=== PATIENT | male | born 1940 | race Caucasian/White ===

== ENCOUNTER → 2020-01-24 09:51 | Outpatient (CLI) | payer MEDICARE, MEDICAID ==
--- NOTE | ~2020-01-24 | EC ---
PATIENT:ERICA RUIZ DATE OF SERVICE: 01/24/20 SEX: M MEDICAL RECORD: [id number] DATE OF : 38 LOCATION:[facility] AGE OF PATIENT: 79 ADMISSION DATE: 01/24/20 REFERRING PHYSICIAN: INTERPRETING PHYSICIAN: CLAY CERVANTES MD ECHOCARDIOGRAM REPORT ECHO CHARGES 4 ECHO COMPLETE Date: 01/24/20 CLINICAL DIAGNOSIS: ANGINA/DE LEÓN/ABNORMAL EKG/ MURMUR/A-FIB/HTN ECHOCARDIOGRAPHIC MEASUREMENTS (adult normal given) AC root (d.<3.7cm) 3.3 cm LV Septum d (<1.2 cm> 1.6 cm Valve Excursion 1.9 cm LV Septum (systole) 2.2 cm Left Atria (s.<4.0cm> 4.6 cm LVPW d(<1.2cm) 1.7 cm RV (d.<2.3cm) 3.3 cm LVPW (sytole) 2.2 cm LV diastole(<5.6CM) 5.1 cm MV E-F(>70mm/sec) cm LV systole 2.7 cm LVOT Diameter 2.0 cm MV exc.(>10mm) cm Est.ejection fraction (50-75%) % DOPPLER: LVIT cm/sec A cm/sec E 132 cm/sec LA cm/sec RVSP 28.0 mmHg LVOT 75.0 cm/sec AOP1/2T m/s Asc. Ao 116 cm/sec RVOT 64.0 cm/sec RA cm/sec PA 88.0 cm/sec AV Gradient Peak 5.4 mmHg AV Mean 2.7 mmHg AV Area 2.2 cm MV Gradient Peak 6.1 mmHg MV Mean 1.8 mmHg MV Area cm COMMENTS: OP - [facility] Consultant: 1 TROY VICKY Head Of Science: 3 Dr. Ramirez TAPE# PACS Pericardial Effusion N DATE OF SERVICE: Adequate 2D, color flow imaging, spectral Doppler, and M-Mode. LVH is present. LV internal dimension is normal. Wall motion is normal. EF is greater than or equal to 55%. Aortic valve is tricuspid. No evidence of stenosis by Doppler interrogation. Left atrium is normal at 4.6 cm. Mitral valve shows no prolapse. Mild MR. Right-sided chambers are grossly normal. Trace TR. ECHOCARDIOGRAM REPORT [id number] ERICA RUIZ TRANSINT:[id number] Voice Confirmation ID: [id number] DOCUMENT ID: [id number] CLAY CERVANTES MD CC: [id number] DICTATION DATE: 01/28/20 1257 LANDSCAPING MANAGER: 01/28/20 2336 DEP CLI 01/24/20 [place] [id number] [place] [id number]
--- NOTE | ~2020-01-24 | ST ---
PATIENT:ERICA RUIZ MEDICAL RECORD: [id number] SEX: M LOCATION:[facility] ORDER #: ADMISSION DATE: 01/24/20 AGE OF PATIENT: 79 REFERRING PHYSICIAN: INTERPRETING PHYSICIAN: MEGAN SHARMA MD DATE OF SERVICE: 01/24/2020 INDICATION: Angina, shortness of breath, hypertension, abnormal ECG. TECHNIQUE: He was exercised on standard Lexiscan protocol with 33 mCi of sestamibi injected at peak stress, 11 mCi used previously for rest images. FINDINGS: Gated SPECT reveals preserved ejection fraction at 66% with decreased thickening and brightening throughout the inferior segments. SPECT imaging Cardiolite was used as myocardial perfusion agent. There is a fixed perfusion defect inferiorly, this includes the basal, mid, apical, inferior segments. There is reversibility laterally. This includes the basal lateral, mid lateral, and apical lateral segments. The degree of reversibility is severe. The amount of myocardium involved is large. There is reversibility anteriorly, this includes the basal, mid, apical anterior segments. The degree of reversibility is severe. The amount of myocardium involved is large. OVERALL IMPRESSION: This is a markedly abnormal high risk nuclear stress test, fixed perfusion defect inferiorly, reversible ischemia laterally and anteriorly suggestive of hemodynamically significant multivessel coronary artery disease. TRANSINT:[id number] Voice Confirmation ID: [id number] DOCUMENT ID: [id number] cc: Annamarie Curran, MEGAN SHARMA MD CC: DR. DAISY [id number] [id number] DICTATION DATE: 01/25/20 1700 DEFLECTOR OPERATOR: 01/26/20 1125 DEP CLI 01/24/20 [place] [id number] [place] [address]
== END | disposition home or self-care (01) ==
LOC: D.HCCECHO 09:51
PROVIDERS: ATTEND Internal Medicine Interventional Cardiology
DX: I48.91 Unspecified atrial fibrillation (principal); I20.9 Angina pectoris, unspecified

== ENCOUNTER 2020-03-18 11:15 | Outpatient (CLI) | payer MEDICARE, MEDICAID ==
[~2020-03-18] VITALS: Ht 185.4 cm; Wt 116.8 kg
--- NOTE | ~2020-03-18 | HEMODYNAMI ---
PATIENT:ERICA RUIZ MEDICAL RECORD: [id number] : 38 LOCATION:[facility] ADMISSION DATE: 03/18/20 Generatedon:03/18/202013:31 Patient name: ERICA RUIZ Patient #: [id number] SSN : [id number] : 1940 Date of study: 03/18/2020 Page: Of Hemodynamic Procedure Report Patient Data Patient Demographics Procedure consent was obtained First Name: ERICA Gender: Male Last Name: SARA : 1940 [facility] Initial: D Age: 79 year(s) Patient #: [id number] Race: SSN: [id number] Additional ID: [id number] Contact details Address: [address] [place] [address] State: [place] City: [place] Zip code: [address] Admission Admission Data Admission Date: 03/18/2020 Admission Time: 11:15 Arrival Date: 03/18/2020 Arrival Time: 13:00 Admit Source: Other Insurance Payor: Medicare [facility] #: [id number] Height (in.): 72.83 BSA: 2.38 (m2) Height (cm.): 185 BMI: 33.89 (kg/m2) Weight (lbs.): 255.74 Weight (kg.): 116 Lab Results Lab Result Date: 03/18/2020 Lab Result Time: 0:00 Biochemistry Name Units Result Min Max BUN mg/dl 16 --(---*)-- 7 18 Creatinine mg/dl 1.2 --(---*)-- 0.6 1.3 eGFR ml/min 61.50792 *-(----)-- 90 120 NONAFRICAN CBC Name Units Result Min Max Hemoglobin g/dl 13.3 -*(----)-- 13.5 17.5 Procedure Procedure Types Cath Procedure Diagnostic Procedure LHC LH w/Coronaries Sedation Charges Moderate Sedation up to 15 minutes PCI Procedure Coronary Stent Coronary Stent Initial Hemochron ACT Test Procedure Description Procedure Date Procedure Date: 03/18/2020 Procedure Start Time: 13:05 Procedure End Time: 13:21 Procedure Staff Name Function Nabeel Rodriguez MD Performing Physician Patsy Brewer RT Monitor Khushbu Johnson RT Scrub Nathen Damon RN Nurse Procedure Data Cath Procedure Fluoroscopy Diagnostic fluoroscopy Total fluoroscopy Time: 3.1 time: 3.1 min min Diagnostic fluoroscopy Total fluoroscopy dose: 656 dose: 656 mGy mGy Contrast Material Contrast Material Type Amount (ml) Isovue 300 92 Entry Location Entry Primary Successful Side Size Upsize Upsize Entry Closure Succes sful Closure Location (Fr) 1 (Fr) 2 (Fr) Remarks Device Remarks Femoral Right 5 Fr 6 Fr Exoseal artery Short Estimated blood loss: 5 ml Diagnostic catheters Device Type Used For End Catheter Placement MULTIPACK JL 4.0 5Fr Left Coronary catheter Angiography MULTIPACK 3DRC 5Fr Right Coronary catheter Angiography MULTIPACK Pigtail 5 Fr LV Angiography catheter Procedure Complications No complications Procedure Medications Medication Administration Route Dosage Oxygen etCO2 Nasal cannula 2 l/min Lidocaine 2% added to field 20 Heparin Flush Bag added to field 2 bags (1000units/500ml NS) 0.9% NaCl I.V. 100 ml/hr Versed I.V. 1 mg Fentanyl I.V. 50 mcg Versed I.V. 1 mg Fentanyl I.V. 50 mcg Heparin Bolus I.V. 4000 units Integrilin (Bolus I.V. 10.7 ml 2mg/ml) Heparin Bolus I.V. 2000 units Plavix P.O. 600 mg Hemodynamics Rest BSA: 2.38 (m2) HGB: 13.3 (g/dl) O2 Consumption: Estimated: 274.33 (ml/min) O2 Co nsumption indexed: Estimated:115.26 (ml/min/m) Heart Rate: 73 (bpm) Pressure Samples Time Site Value (mmHg) Purpose Heart Use Rate(bpm) 13:11 LV 177/14,19 Snapshot 77 Gradients Valve Time Site Site Mean SEP/DFP Peak To Heart Use 1 2 (mmHg) (sec/min) Peak Rate (mmHg) (bpm) Aortic 13:11 LV AO 81 Snapshots Pre Cath Intra NCS Post Cath Vital Signs Time Heart Resp SPO2 etCO2 NIBP (mmHg) Rhythm Pain Sedation Rate (ipm) (%) (mmHg) Status Level (bpm) 12:55:08 74 14 100 0 176/95(139) A-Fib 0 (11) 10(A) , No pain 12:59:52 81 17 100 34.4 179/93(150) A-Fib 0 (11) 10(A) , No pain 13:04:37 68 14 100 26.1 170/103(136) A-Fib 0 (11) 10(A) , No pain 13:09:18 70 10 100 0 171/103(141) A-Fib 0 (11) 9(A) , No pain 13:14:03 71 10 99 38.1 153/82(144) A-Fib 0 (11) 9(A) , No pain 13:19:53 62 15 99 35.8 166/96(141) NSR w/ ST 0 (11) 10(A) Elevation , No pain 13:30:13 67 18 100 36.6 176/103(157) A-Fib 0 (11) 10(A) , No pain Medications Time Medication Route Dose Verified Delivered Reason Notes Effectiveness by by 12:53:47 Oxygen etCO2 2 Nabeel Sena used for Nasal l/min St Abran Damon RN procedure cannula 12:53:55 Lidocaine 2% added 20ml Nabeel Lees for local to vial [facility] anesthetic field MD ALMANZAR 12:54:01 Heparin Flush added 2 Nabeel Nabeel used for Bag to bags [facility] procedure (1000units/500ml field MD ALMANZAR NS) 12:54:10 0.9% NaCl I.V. 100 Nabeel Sena Per physician ml/hr St Abran Damon RN, MD 13:02:52 Versed I.V. 1 mg Nabeel Sena for sedation St Abran Damon RN, MD 13:02:57 Fentanyl I.V. 50 Nabeel Novakie for sedation mcg St Abran Damon RN, MD 13:07:15 Versed I.V. 1 mg Nabeel Novakie for sedation St Abran Damon RN, MD 13:07:19 Fentanyl I.V. 50 Nabeel Sena for sedation mcg St Abran Damon RN, MD 13:14:15 Heparin Bolus I.V. 4000 Nabeel Novakie for verif ied units St Abran Damon RN anticoagulation with dr MD gaffney 13:17:56 Integrilin I.V. 10.7 Nabeel Sena for waste d (Bolus 2mg/ml) ml St Abran Damon RN antiplatelet 9.3 ml MD therapy of vial 13:21:34 Heparin Bolus I.V. 1999 Nabeel Sena for verif ied units St Abran Damon RN anticoagulation with dr MD gaffney 13:30:05 Plavix P.O. 600 Nabeel Sena for mg St Abran Damon RN antiplatelet MD therapy Procedure Log Time Note 12:30:16 Nathen Damon RN sent for patient. Start room use. 12:39:12 Informed consent obtained and on chart 12:41:52 Arrival Date: 03/18/2020 1:00:00 PM 12:43:32 Admit Source: Other 12:43:39 Insurance Payor : Medicare 12:43:46 Patient Height : 72.83 inches 12:43:50 Patient Weight : 255.74 lbs 12:45:25 Lab Result : eGFR NONAFRICAN 61.16777 ml/min 12:45:25 Lab Result : Hemoglobin 13.3 g/dl 12:45:25 Lab Result : BUN 16 mg/dl 12:45:25 Lab Result : Creatinine 1.2 mg/dl 12:45:31 Diagnostic Cath Status : Elective 12:46:39 Procedure Status Elective Heart Cath (OP). 12:47:25 Time tracking: Regular hours (M-F 7:00 - 5:00) 12:47:30 Plan of Care:Hemodynamics will remain stable., Cardiac rhythm will remain stable., Comfort level will be maintained., Respiratory function will remain adequate., Patient/ family verbilizes understanding of procedure., Procedure tolerated without complication., Recovers from procedure without complications.. 12:47:39 Patient received from Pre/Post Procedure Room to [facility] 1 Alert and oriented. Tansferred to table in Supine position. 12:47:41 Warm blankets applied, and manpreet hugger turned on for patient comfort. 12:47:41 Correct patient and procedure confirmed by team. 12:47:42 ECG and BP/O2 sat monitors applied to patient. 12:53:36 Vital chart was started 12:53:47 Oxygen 2 l/min etCO2 Nasal cannula was administered by Nathen Damon RN; used for procedure; Verbal order read back and verified. 12:53:55 Lidocaine 2% 20ml vial added to field was administered by Nabeel Rodriguez MD; for local anesthetic; Verbal order read back and verified. 12:54:01 Heparin Flush Bag (1000units/500ml NS) 2 bags added to field was administered by Nabeel Rodriguez MD; used for procedure; Verbal order read back and verified. 12:54:10 0.9% NaCl 100 ml/hr I.V. was administered by Nathen Damon RN; Per physician; Verbal order read back and verified. 12:55:32 Baseline sample Acquired. 12:55:36 Rhythm: sinus rhythm , atrial fibrillation 12:55:37 Full Disclosure recording started 12:56:08 Called and updated spouse of pt, April. 12:57:14 H&P Date Dictated: 03/18/2020 Within 30 days and on chart., H&P Addendum completed by physician on day of procedure. (MUST COMPLETE FOR ALL OUTPATIENTS). 12:57:35 Pre-procedure instructions explained to patient. 12:57:36 Pre-op teaching completed and patient verbalized understanding. 12:57:38 Family unavailable. 12:57:39 Patient NPO since Midnight. 12:57:47 Is the patient allergic to Iodine/contrast media? No. 12:57:54 Was the patient premedicated? Yes 12:57:56 Is patient on blood thinner?No 12:58:00 Patient diabetic? No. 12:58:03 Previous problem with sedation/anesthesia? No ? 12:58:05 Snore? Yes 12:58:06 Sleep apnea? No 12:58:07 Deviated septum? No 12:58:08 Opens mouth fully? Yes 12:58:10 Sticks out tongue? Yes 12:58:13 Airway obstruction? No ? 12:58:19 Dentures? No ? 12:58:24 Pre procedure: right dorsailis pedis pulse 2+ Normal; easily identifiable; not easily obliterated 12:58:29 Pre procedure: left dorsailis pedis pulse 2+ Normal; easily identifiable; not easily obliterated 12:58:32 Patient pain scale 0/10 ?. 12:58:51 IV patent on arrival in left forearm with 0.9% NaCl at O. 12:58:53 Lab results completed and on chart. 12:59:02 Stress Test: yes; abnormal ? 13:01:19 Risk of Mortality: 0.2 13:01:23 Risk of blood transfusion: 1.1 13:01:27 Risk of FERNANDEZ: 2.7 13:01:34 Right groin area was prepped with chlora-prep and draped in sterile fashion 13:01:35 Alarms reviewed by R. N. 13:01:35 Sharps counted by scrub and verified by R.N. 13:01:39 Physician arrived 13:01:40 --------ALL STOP TIME OUT------ 13:01:44 Final Timeout: patient, procedure, and site verified with staff and physician. All members of the team are in agreement. 13:01:46 Right Radial & Right Groin site verified by team. 13:01:50 Fire Safety Assessment: A--An alcohol-based skin anteseptic being used preoperatively., C--Open oxygen or nitrous oxide is being used., D--An ESU, laser, or fiber-optic light is being used. 13:01:54 Physical assessment completed. ASA score P 2 - A patient with mild systemic disease as per Nabeel Rodriguez MD. 13:02:08 2) 60-89 Mildly reduced kidney function, and other findings (as for stage 1) point to kidney disease. 13:02:28 Maximum allowable contrast dose (3.7 X eGFR X 0.75)172 ml. 13:02:32 Sedation plan: IV Moderate Sedation Medication:Versed, Fentanyl 13:02:39 Use device set Femoral Dx 13:02:42 ACIST Syringe (77727) opened to sterile field. 13:02:42 Bag Decanter (2001S) opened to sterile field. 13:02:42 Medline Cath Pack ([id number]) opened to sterile field. 13:02:44 ACIST Manifold (17019) opened to sterile field. 13:02:44 ACIST Hand Control (73213) opened to sterile field. 13:02:45 DIAGNOSTIC Multipack 5Fr catheter set (ZY4366) opened to sterile field. 13:02:46 Tegaderm 4 x 4 (1626W) opened to sterile field. 13:02:47 SHEATH 5FR Bryan (YMJ041) opened to sterile field. 13:02:47 EMERALD Guide Wire (451-620) opened to sterile field. 13:02:52 Versed 1 mg I.V. was administered by Nathen Damon RN; for sedation; Verbal order read back and verified. 13:02:57 Fentanyl 50 mcg I.V. was administered by Nathen Damon RN; for sedation; Verbal order read back and verified. 13:05:46 Procedure started. 13:05:49 Local anesthetic to right femoral artery with Lidocaine 2% by Nabeel Rodriguez MD.INITIAL ACCESS ONLY 13:05:58 A 5 Fr sheath was inserted into the Right Femoral artery 13:06:45 A MULTIPACK JL 4.0 5Fr catheter was advanced over the wire and used for Left Coronary Angiography. 13:07:12 LCA angiography performed. 13:07:15 Versed 1 mg I.V. was administered by Nathen Damon RN; for sedation; Verbal order read back and verified. 13:07:19 Fentanyl 50 mcg I.V. was administered by Nathen Damon RN; for sedation; Verbal order read back and verified. 13:07:22 Injector settings: Ml/sec: 3, Volume: 6, 13:09:35 Catheter removed. 13:09:44 A MULTIPACK 3DRC 5Fr catheter was advanced over the wire and used for Right Coronary Angiography. 13:09:48 RCA angiography performed. 13:09:51 Injector settings: Ml/sec: 3, Volume: 6, 13:10:00 Catheter removed. 13:10:11 A MULTIPACK Pigtail 5 Fr catheter was advanced over the wire and used for LV Angiography. 13:11:11 LV hemodynamics recorded. 13:11:12 LV gram done using ROSE 13:11:15 Injector settings: Ml/sec: 5, Volume: 15, 13:11:34 EF : 55 % 13:12:09 Catheter removed. 13:12:10 Proceeding to intervention. 13:12:13 ACCDominant side:Right 13:12:33 LUGE Straight 300cm 0.014 guide wire ([id number]) opened to sterile field. 13:12:36 SHEATH 6FR Bryan (KJK897) opened to sterile field. 13:12:36 INFLATOR Merit BasixCompak (AC6300) opened to sterile field. 13:12:48 GUIDE 6FR HS I catheter (LA6HSI) opened to sterile field. 13:14:15 Heparin Bolus 4000 units I.V. was administered by Nathen Damon RN; for anticoagulation; verified with dr gaffney Verbal order read back and verified. 13:14:19 Sheath upsized to a 6 Fr Short. 13:14:31 6 Fr hs 1 guide catheter was inserted over the wire 13:14:35 luge wire advanced. 13:14:48 ACC Pre-intervention ABDIFATAH Flow is 3. 13:14:58 Pre PCI Site: [place] pRCA has 90% stenosis. 13:17:54 Place stent Inflation Number: 1 A KENY OTW 3.5 x 15 stent ([id number]) was prepped and advanced across the Prox RCA 90. The stent was deployed at 14 FARIBA for 0:10 (min:sec) 0. 13:17:56 Integrilin (Bolus 2mg/ml) 10.7 ml I.V. was administered by Nathen Damon RN; for antiplatelet therapy; wasted 9.3 ml of vial Verbal order read back and verified. 13:18:32 Stent catheter was removed intact over wire. 13:18:33 Wire removed. 13:18:33 Guide catheter removed. 13:18:45 EXOSEAL 6Fr (EX600) opened to sterile field. 13:18:54 Sheath removed intact; hemostasis achieved with Exoseal to the Right Femoral artery. 13:18:55 Procedure ended.(Physican Out) 13:19:19 Fluoroscopy time 03.10 minutes. 13:19:22 Fluoroscopy dose: 656 mGy 13:19:22 Flurop Dose total: 656 13:19:29 Dose Area Product 23787 mGy/cm. 13:19:34 Contrast amount:Isovue 300 92ml. 13:19:38 Maximum allowable dose exceeded? No. 13:19:40 Sharps counted by scrub and verified by R.N. 13:19:51 Insertion/operative site no bleeding no hematoma. 13:19:54 Post-op/insertion site Right Femoral artery dressed using a 4 x 4 and Tegaderm. 13:20:26 Post procedure rhythm: unchanged. 13:20:29 Estimated blood loss: 5 ml 13:20:35 Post procedure instruction explained to patient.Patient verbalizes understanding. 13:20:35 Patient needs reinforcement of post procedure teaching. 13:20:47 Procedure type changed to Cath procedure, Diagnostic procedure, LHC, LHC w/Coronaries, Sedation Charges, Moderate Sedation up to 15 minutes, PCI procedure, Coronary Stent, Coronary Stent Initial, Hemochron ACT Test 13:21:26 Procedure and supply charges have been captured, reviewed, submitted and are correct. 13:21:33 Procedure Complication : No complications 13:21:34 Heparin Bolus 2000 units I.V. was administered by Nathen Damon RN; for anticoagulation; verified with dr gaffney Verbal order read back and verified. 13:21:36 Vital chart was stopped 13:21:40 [facility] Findings: MVD- PCI performed (see procedure note) 13:21:42 Operative report dictated upon procedure completion. 13:21:42 See physician's report for complete and final results. 13:21:45 Report given to Pre/Post Procedure Room. 13:21:48 Patient transfered to Pre/Post Procedure Room with Stretcher. 13:21:50 Procedure ended. 13:21:50 Full Disclosure recording stopped 13:21:58 ACC-PCI Only Patient was given prescriptions, or instructed by Nabeel Rodriguez MD to start/continue the following medications upon discharge: Plavix 13:21:59 End room use (Document Last) 13:25:23 ACT drawn and resulted at 656 seconds. (normal therapeutic range 180-240 seconds). 13:30:05 Plavix 600 mg P.O. was administered by Nathen Damon RN; for antiplatelet therapy; Verbal order read back and verified. Intervention Summary Intervention Notes Time ActionType Lesion and Equipment Action# Pressure Duration Attributes Used 13:17:54 Place stent Prox RCA KENY OTW 3.5 1 14 00:10 x 15 stent ([id number]) Device Usage Item Name Manufacture Quantity Catalog Hospital Part Current Min imal Lot# / Number Charge Number Stock Stock Serial# Code ACIST Syringe Acist 1 91731 212095 255378 350898 20 (65455) Medical Systems Inc Bag Decanter Microtek 1 2001S 164197 12440 079052 5 (2001S) Medical Inc. Medline Cath Medline 1 [id number] 665550 70192 599037 5 Pack ([id number]) ACIST Acist 1 10246 239223 068815 815275 5 Manifold Medical (91692) Systems Inc ACIST Hand Acist 1 96061 889826 442737 467440 5 Control Medical (10195) Systems Inc DIAGNOSTIC Cardinal 1 TL5819 134642 62876 530013 30 Multipack 5Fr Health catheter set (RH0088) Tegaderm 4 x 3M 1 1626W 849363 199713 457671 5 4 (1626W) SHEATH 5FR Terumo 1 YHV581 845486 622921 707002 5 Bryan (WZJ997) EMERALD Guide Cardinal 1 502-455 044521 831418 991199 5 Wire Health (502-455) MULTIPACK JL Cardinal 1 957836 5 4.0 5Fr Health catheter MULTIPACK Cardinal 1 619845 5 3DRC 5Fr Health catheter MULTIPACK Cardinal 1 630792 5 Pigtail 5 Fr Health catheter LUGE Straight [place] 1 [id number] 073512 534335 048349 5 300cm 0.014 Scientific guide wire (99777388) SHEATH 6FR Terumo 1 VAX078 813242 499470 969431 40 Bryan (CTW630) INFLATOR Merit 1 KS4530 470604 712272 266968 15 Merit Medical BasixCompak (GD6268) GUIDE 6FR HS Medtronic 1 LA6HSI 954880 92026 118451 1 I catheter (LA6HSI) KENY OTW 3.5 Medtronic 1 [id number] 321094 2449467 023423 5 [id number] x 15 stent ([id number]) EXOSEAL 6Fr Cardinal 1 EX600 032797 550106 198121 10 (EX600) Health Signature Audit [place] Stage Time Signature Unsigned Intra-Procedure 03/18/2020 Patsy Brewer 1:29:42 PM RT(R) Intra-Procedure 03/18/2020 Nathen Damon RN 1:30:18 PM Intra-Procedure 03/18/2020 Nabeel Dockery 1:31:54 PM Abran AL[place]AR [place] [id number] [place] [address]
[2020-03-18] MEDS ORDERED: IBUPROFEN800 MG PO (11:34)
[2020-03-18] MEDS ORDERED: LEVOTHYROXINE50 MCG PO (11:34)
[2020-03-18] MEDS ORDERED: COZAAR50 MG PO (11:34)
[2020-03-18] MEDS ORDERED: MULTI-DAY VITAM1 TAB PO (11:35)
[2020-03-18] MEDS ORDERED: ASCORBIC ACID500 MG PO (11:35)
[2020-03-18] MEDS ORDERED: HYDROCHLOROTH12.5 M1 PO (11:35)
[2020-03-18 11:45] VITALS: BP 175/93; Ht 185.4 cm; Wt 116.8 kg
[2020-03-18 12:02] LABS: BASOPHILS 0.3 % (0-2); EOSINOPHILS 5.9 % (0-7); HEMATOCRIT 40.9 % (42.0-54.0); HEMOGLOBIN 13.3 g/dL (13.5-17.5); IMMATURE GRANULOCYTES 0.3 % (0-5); LYMPHOCYTES 29.9 % (15-50); MCH 28.8 pg (26.0-34.0); MCHC 32.5 g/dL (31.0-37.0); MCV 88.5 fL (80.0-100.0); MEAN PLATELET VOLUME 9.9 fL (7.4-10.4); MONOCYTES 9.5 % (2-11); NEUTROPHILS 54.1 % (40-80); PLATELET COUNT 159 10x3/uL (130-400); RBC 4.62 10x6/uL (4.20-6.10); RDW 13.9 % (11.5-14.5); WBC 5.9 10x3/uL (4.8-10.8)
[2020-03-18 12:14] LABS: ANION GAP 13.2 mmol/L (8-16); CALCIUM 8.9 mg/dL (8.5-10.1); CARBON DIOXIDE 28.8 mmol/L (21.0-32.0); CHOL - HDL RATIO 4.6 ratio (2.3-4.9); CREATININE - SERUM 1.2 mg/dL (0.6-1.3); LDL-HDL RATIO 2.8 ratio (1.5-3.5)
--- NOTE | 2020-03-18 13:44 | NUR ---
PT ARRIVED BY STRETCHER. PLACED ON MONITORS. ASSESSMENT COMPLETED. BP 197/98. DR. CXO NOTIFIED. WAITING ON ORDERS.
--- NOTE | 2020-03-18 13:59 | NUR ---
PT RESTING COMFORTABLY. RIGHT GROIN DRESSING C/D/I. NO S/S OF HEMATOMA NOTED. PT GIVEN PO CLONIDINE PER MD ORDERS. HR 80 A-FIB. BP 204/101. PT DENIES NAUSEA/PAIN AT THIS TIME.
[2020-03-18] MEDS ORDERED: LIPITOR10 MG PO (14:23)
[2020-03-18] MEDS ORDERED: PLAVIX75 MG PO (14:23)
[2020-03-18] MEDS ORDERED: BAYER CHEWABLE81 MG PO (14:23)
--- NOTE | 2020-03-18 14:33 | NUR ---
PT RESTING COMFORTABLY. HR 82. BP 196/97. RIGHT GROIN DRESSING C/D/I. NO S/S OF HEMATOMA NOTED. PT DENIES NAUSEA/PAIN AT THIS TIME. TOLERATING SIPS OF TEA. WILL CONTINUE TO MONITOR.
--- NOTE | 2020-03-18 15:01 | NUR ---
PT RESTING COMFORTABLY. VSS. RIGHT GROIN DRESSING C/D/I. NO S/S OF HEMATOMA NOTED. CALL LIGHT WITHIN REACH. CALLED PT'S AND UPDATED HER ON PT'S STATUS AT THIS TIME.
--- NOTE | 2020-03-18 15:16 | NUR ---
RIGHT GROIN DRESSING C/D/I. NO S/S OF HEMATOMA NOTED. PT VOIDED 650cc OF CLEAR YELLOW URINE IN URINAL WITHOUT DIFFICULTY. VSS. BP TRENDING DOWN AFTER MEDICATION. CURRENTLY 178/100.
--- NOTE | 2020-03-18 15:50 | NUR ---
PT RESTING COMFORTABLY. VSS. RIGHT GROIN DRESSING C/D/I. NO S/S OF HEMATOMA NOTED. CALL LIGHT WITHIN REACH. BP 172/94. WILL CONTINUE TO MONITOR.
--- NOTE | 2020-03-18 16:26 | NUR ---
RIGHT GROIN DRESSING C/D/I. NO S/S OF HEMATOMA NOTED. CALL LIGHT WITHIN REACH. VSS. HEAD OF BED INC TO 30 DEGREES. TOLERATED WELL. SET UP WITH SANDWICH TRAY AND DRINK. DENIES NAUSEA/PAIN AT THIS TIME. WILL CONTINUE TO MONITOR.
--- NOTE | 2020-03-18 17:09 | NUR ---
RIGHT GROIN DRESSING C/D/I. NO S/S OF HEMATOMA NOTED. PIV D/C'D WITH CATH TIP INTACT. TOLERATED WELL. VSS. PT ENCOURAGED TO GET UP AND DRESSED AT THIS TIME. NO ASSISTANCE NEEDED. CALL LIGHT WITHIN REACH.
--- NOTE | 2020-03-18 17:15 | NUR ---
PT AMBULATED TO RESTROOM. VOIDED WITHOUT DIFFICULTY. STEADY GAIT NOTED. DISCUSSED DISCHARGE INSTRUCTIONS WITH PT. HE VOICED UNDERSTANDING.
--- NOTE | 2020-03-18 17:30 | NUR ---
PT TAKEN DOWN TO VEHICLE BY WHEELCHAIR. NO S/S OF DISTRESS NOTED. ALL BELONGINGS AND PAPERWORK IN HAND. DISCUSSED DISCHARGE INSTRUCTIONS WITH PT'S .
--- NOTE | 2020-03-20 14:09 | OP ---
PATIENT NAME: ERICA RUIZ MEDICAL RECORD: [id number] :38 LOCATION:D.CAT ADMISSION DATE: SURGEON: CLAY CERVANTES MD DATE OF OPERATION: 03/18/2020 PROCEDURE: Left heart catheterization, selective coronary angiography, right femoral artery approach. CATHETERS: A 5-Slovak sheath, 5/4 left and right Adele, 5/4 pig. The procedure was well tolerated. The patient returned to the parsons, sheath removed. ExoSeal device placed. FINDINGS: Left ventriculography in 30-degree ROSE view: Normal wall motion. Normal systolic function. CORONARY ANATOMY: LEFT MAIN: Left main is free of disease. LAD: Free of disease. There is a large diagonal branch that basically runs parallel to the LAD has an ostial stenosis of 90%. CIRCUMFLEX: Moderate size vessel free of disease. RIGHT CORONARY ARTERY: Large, dominant artery has a 90% stenosis proximally. IMPRESSION: Plan of intervention, the right coronary had diagonal staged fashion. A 5-Slovak sheath was exchanged for a 6-Slovak sheath. Hockey stick guiding catheter provided excellent guide catheter support followed by a lose wire, which was placed across the tightly occluded right down this portion of vessel. Stent deployed with 3.5 x 50 mm Falkner drug eluting stent up to 14 atmospheres. Final angiography shows excellent resolution of 90% plus stenosis, no significant residual. ABDIFATAH flow was 3 throughout the procedure. Integrilin and heparin were used during the case. Sheath was closed with ExoSeal device. Plavix was loaded in the lab. TRANSINT:[id number] Voice Confirmation ID: [id number] DOCUMENT ID: [id number] CLAY CERVANTES MD at 1409 CC: [id number] DICTATION DATE: 03/18/20 1335 REFERENCE DATA EXPERT: 03/18/20 1937 DEP CLI 03/18/20 [facility] [address] [id number]
== END 2020-03-18 17:30 | disposition home or self-care (01) ==
LOC: D.CATH 11:15
PROVIDERS: ATTEND Internal Medicine Interventional Cardiology
DX: I25.119 Atherosclerotic heart disease of native coronary artery with unspecified angina pectoris (principal); I48.91 Unspecified atrial fibrillation; I10 Essential (primary) hypertension; E78.5 Hyperlipidemia, unspecified
CPT/HCPCS: 93458; C9600

== ENCOUNTER 2020-03-26 07:30 | Outpatient (CLI) | payer MEDICARE, MEDICAID ==
[~2020-03-26] VITALS: Ht 185.4 cm; Wt 116.8 kg
--- NOTE | ~2020-03-26 | HEMODYNAMI ---
PATIENT:ERICA RUIZ MEDICAL RECORD: [id number] : 38 LOCATION:D.CAT ADMISSION DATE: 03/26/20 Generatedon:03/26/202010:49 Patient name: ERICA RUIZ Patient #: [id number] SSN : [id number] : 1940 Date of study: 03/26/2020 Page: Of Hemodynamic Procedure Report Patient Data Patient Demographics Procedure consent was obtained First Name: ERICA Gender: Male Last Name: SARA : 1940 [facility] Initial: D Age: 79 year(s) Patient #: [id number] Race: SSN: [id number] Additional ID: [id number] Contact details Address: [address] [place] [address] State: [place] City: [place] Zip code: [address] Past Medical History Allergies: No known allergies Admission Admission Data Admission Date: 03/26/2020 Admission Time: 7:30 Arrival Date: 03/26/2020 Arrival Time: 0:00 Admit Source: Other [facility] #: [id number] Height (in.): 72.83 BSA: 2.38 (m2) Height (cm.): 185 BMI: 33.89 (kg/m2) Weight (lbs.): 255.74 Weight (kg.): 116 Lab Results Lab Result Date: 03/26/2020 Lab Result Time: 0:00 Biochemistry Name Units Result Min Max BUN mg/dl 24 --(----)-* 7 18 Creatinine mg/dl 1.3 --(---*)-- 0.6 1.3 eGFR ml/min 56 *-(----)-- 90 120 NONAFRICAN CBC Name Units Result Min Max Hemoglobin g/dl 13 -*(----)-- 13.5 17.5 Procedure Procedure Types Cath Procedure Diagnostic Procedure Sedation Charges Moderate Sedation up to 15 minutes PCI Procedure Coronary Stent Coronary Stent Initial Hemochron ACT Test Procedure Description Procedure Date Procedure Date: 03/26/2020 Procedure Start Time: 10:29 Procedure End Time: 10:47 Procedure Staff Name Function Nabeel Rodriguez MD Performing Physician Magali Peoples RT Monitor Christine Dugan RN Nurse Margie Cobb RT Scrub Procedure Data Cath Procedure Fluoroscopy Diagnostic fluoroscopy Total fluoroscopy Time: 4.7 time: 4.7 min min Diagnostic fluoroscopy Total fluoroscopy dose: 528 dose: 528 mGy mGy Contrast Material Contrast Material Type Amount (ml) Isovue 300 67 Entry Location Entry Primary Successful Side Size Upsize Upsize Entry Closure Succes sful Closure Location (Fr) 1 (Fr) 2 (Fr) Remarks Device Remarks Femoral Left 6 Fr Exoseal artery Short Estimated blood loss: 10 ml Procedure Complications No complications Procedure Medications Medication Administration Route Dosage 0.9% NaCl I.V. 100 ml/hr Oxygen etCO2 Nasal cannula 2 l/min Lidocaine 2% added to field 20 Heparin Flush Bag added to field 2 bags (1000units/500ml NS) Versed I.V. 2 mg Fentanyl I.V. 50 mcg Hemodynamics Rest BSA: 2.38 (m2) O2 Consumption: Estimated: 323.68 (ml/min) O2 Consumption indexed : Estimated:136 (ml/min/m) Pre Cath Intra NCS Post Cath Vital Signs Time Heart Resp SPO2 etCO2 NIBP (mmHg) Rhythm Pain Sedation Rate (ipm) (%) (mmHg) Status Level (bpm) 10:14:54 57 10 99 36.2 165/91(136) A-Fib 0 (11) 10(A) , No pain 10:19:53 63 11 100 33.9 Measuring A-Fib 0 (11) 10(A) , No pain 10:20:24 78 10 100 34.7 147/88(126) A-Fib 0 (11) 10(A) , No pain 10:24:50 63 11 100 29.4 146/80(127) A-Fib 0 (11) 10(A) , No pain 10:29:17 77 11 100 27.9 146/77(121) A-Fib 0 (11) 10(A) , No pain 10:33:43 75 13 100 20.3 133/85(115) A-Fib 0 (11) 10(A) , No pain 10:38:42 75 12 96 23.4 Measuring A-Fib 0 (11) 10(A) , No pain 10:38:46 72 12 96 28.6 142/81(119) A-Fib 0 (11) 10(A) , No pain 10:43:08 79 13 99 27.1 157/89(118) A-Fib 0 (11) 10(A) , No pain 10:47:37 69 11 100 15 175/89(143) A-Fib 0 (11) 10(A) , No pain Medications Time Medication Route Dose Verified Delivered Reason Notes Eff ectiveness by by 10:13:20 0.9% NaCl I.V. 100 Nabeel Christine used for ml/hr St Abran Dugan procedure MD BROTHERS 10:13:26 Oxygen etCO2 2 Nabeel Christine used for Nasal l/min Goodman Ritchie procedure cannula MD BROTHERS 10:13:31 Lidocaine 2% added 20ml Nabeel Nabeel for local to vial [facility] anesthetic field MD ALMANZAR 10:13:34 Heparin Flush added 2 Nabeel Nabeel used for Bag to bags [facility] procedure (1000units/500ml field MD ALMANZAR NS) 10:30:00 Versed I.V. 2 mg Nabeel Christine for MichaelAbran Dugan sedation MD BROTHERS 10:30:10 Fentanyl I.V. 50 Nabeel Christine for mcg St Abran Dugan sedation MD BROTHERSinformation and data architect analyst Log Time Note 10:04:55 Admit Source: Other 10:04:58 Arrival Date: 03/26/2020 12:00:00 AM 10:05:25 Patient Height : 72.83 inches 10:05:31 Patient Weight : 255.74 lbs 10:06:07 Lab Result : eGFR NONAFRICAN 56 ml/min 10:06:07 Lab Result : Creatinine 1.3 mg/dl 10:06:07 Lab Result : BUN 24 mg/dl 10:06:07 Lab Result : Hemoglobin 13 g/dl 10:06:16 Diagnostic Cath Status : Elective 10:06:50 Procedure Status Elective Heart Cath (OP). 10:06:55 Christine Dugan RN sent for patient. Start room use. 10:06:56 Time tracking: Regular hours (M-F 7:00 - 5:00) 10:07:09 Plan of Care:Hemodynamics will remain stable., Cardiac rhythm will remain stable., Comfort level will be maintained., Respiratory function will remain adequate., Patient/ family verbilizes understanding of procedure., Procedure tolerated without complication., Recovers from procedure without complications.. 10:07:19 Patient received from Pre/Post Procedure Room to CCL 1 Alert and oriented. Tansferred to table in Supine position. 10:07:21 Signed procedure consent form obtained from patient. 10:07:22 Warm blankets applied, and manpreet hugger turned on for patient comfort. 10:07:23 Correct patient and procedure confirmed by team. 10:07:30 Pre-procedure instructions explained to patient. 10:07:32 Family unavailable. 10:07:34 Patient NPO since Midnight. 10:07:43 Patient allergic to No known allergies 10:07:46 Is the patient allergic to Iodine/contrast media? No. 10:07:47 Was the patient premedicated? Yes 10:13:04 Is patient on blood thinner?Yes 10:13:07 ACC The patient was administered the following blood thiners within the last 24 hours: ACCPlavix 10:13:11 Patient diabetic? No. 10:13:15 Snore? Yes 10:13:17 Sleep apnea? No 10:13:20 0.9% NaCl 100 ml/hr I.V. was administered by Christine Dugan RN; used for procedure; Verbal order read back and verified. 10:13:23 Dentures? Yes tight 10:13:26 Oxygen 2 l/min etCO2 Nasal cannula was administered by Christine Dugan RN; used for procedure; Verbal order read back and verified. 10:13:27 Patient pain scale 0/10 ?. 10:13:31 Lidocaine 2% 20ml vial added to field was administered by Nabeel Rodriguez MD; for local anesthetic; Verbal order read back and verified. 10:13:34 Heparin Flush Bag (1000units/500ml NS) 2 bags added to field was administered by Nabeel Rodriguez MD; used for procedure; Verbal order read back and verified. 10:13:34 IV patent on arrival in left forearm with 0.9% NaCl at [facility] 10:13:37 Vital chart was started 10:13:39 Lab results completed and on chart. 10:13:44 Stress Test: no; N/A ? 10:13:54 Left groin area was prepped with chlora-prep and draped in sterile fashion 10:13:56 Alarms reviewed by R. N. 10:13:56 Sharps counted by scrub and verified by R.N. 10:13:58 Physician paged 10:13:59 Physician arrived 10:19:18 Maximum allowable contrast dose (3.7 X eGFR X 0.75)155 ml. 10:19:27 3a) 45-59 Moderately reduced kidney function. 10:19:33 Use device set Radial Dx or PCI 10:19:45 Use device set Femoral Dx 10:19:49 ACIST Syringe (04720) opened to sterile field. 10:19:50 Bag Decanter (2002S) opened to sterile field. 10:19:51 Medline Cath Pack ([id number]) opened to sterile field. 10:19:52 ACIST Hand Control (40867) opened to sterile field. 10:19:53 ACIST Manifold (54773) opened to sterile field. 10:19:55 Tegaderm 4 x 4 (1626W) opened to sterile field. 10:19:58 EMERALD Guide Wire (060-672) opened to sterile field. 10:20:34 SHEATH 6FR [place] (BCN962) opened to sterile field. 10:20:34 WHISPER 300cm guide wire ([id number]) opened to sterile field. 10:20:35 GUIDE 6FR XBLAD 3.5 catheter ([id number]) opened to sterile field. 10:29:23 --------ALL STOP TIME OUT------ 10:29:24 Final Timeout: patient, procedure, and site verified with staff and physician. All members of the team are in agreement. 10:29:32 Left groin site verified by team. 10:29:36 Fire Safety Assessment: A--An alcohol-based skin anteseptic being used preoperatively., C--Open oxygen or nitrous oxide is being used., D--An ESU, laser, or fiber-optic light is being used. 10:29:40 Physical assessment completed. ASA score P 3 - A patient with severe systemic disease as per Nabeel Rodriguez MD. 10:29:44 Procedure started. 10:29:44 Full Disclosure recording started 10:29:54 Local anesthetic to left femerol artery with Lidocaine 2% by Nabeel Rodriguez MD.INITIAL ACCESS ONLY 10:30:00 Versed 2 mg I.V. was administered by Christine Dugan RN; for sedation; Verbal order read back and verified. 10:30:04 A 6 Fr Short sheath was inserted into the Left Femoral artery 10:30:10 Fentanyl 50 mcg I.V. was administered by Christine Dugan RN; for sedation; Verbal order read back and verified. 10:31:11 6 Fr xblad3.5 guide catheter was inserted over the wire 10:32:45 Guide catheter removed. 10:32:51 GUIDE 6FR XBLAD 4.0 catheter ([id number]) opened to sterile field. 10:33:23 6 Fr xblad4 guide catheter was inserted over the wire 10:33:55 Whisper wire advanced. 10:36:39 Wire advanced across lesion. 10:37:54 Inflate balloon Inflation number: 1 A EMERGE OTW 2.0 x 15 balloon ([id number]) was prepped and advanced across the 1st Diag 90, then inflated to 12 FARIBA for 0:34 (min:sec) . 10:39:26 Balloon removed over the wire. 10:43:20 Place stent Inflation Number: 2 A INTEGRITY RX 3.0 x 09 stent ([id number]) was prepped and advanced across the 1st Diag 90. The stent was deployed at 14 FARIBA for 0:15 (min:sec) 0. 10:43:44 EXOSEAL 6Fr (EX600) opened to sterile field. 10:44:10 Sheath removed intact; hemostasis achieved with Exoseal to the Left Femoral artery. 10:44:13 Procedure ended.(Physican Out) 10:44:21 Fluoroscopy time 04.70 minutes. 10:44:36 Fluoroscopy dose: 528 mGy 10:44:36 Flurop Dose total: 528 10:44:43 Dose Area Product 72995 mGy/cm. 10:45:07 Contrast amount:Isovue 300 67ml. 10:45:09 Maximum allowable dose exceeded? No. 10:45:13 Insertion/operative site no bleeding no hematoma. 10:45:17 Post-op/insertion site Left Femoral artery dressed using a 4 x 4 and Tegaderm. 10:45:19 Post Procedure Pulses reassessed and unchanged 10:45:24 Post-procedure physical assessment completed. ASA score P 3 - A patient with severe systemic disease as per Nabeel Rodriguez MD. 10:45:27 Post procedure rhythm: unchanged. 10:45:31 Estimated blood loss: 10 ml 10:46:01 ACT drawn and resulted at 286 seconds. (normal therapeutic range 180-240 seconds). 10:46:05 Post procedure instruction explained to patient.Patient verbalizes understanding. 10:47:06 Procedure type changed to Cath procedure, Diagnostic procedure, Sedation Charges, Moderate Sedation up to 15 minutes, PCI procedure, Coronary Stent, Coronary Stent Initial, Hemochron ACT Test 10:47:23 Procedure and supply charges have been captured, reviewed, submitted and are correct. 10:47:35 Procedure Complication : No complications 10:47:38 Vital chart was stopped 10:47:41 [facility] Findings: MVD- PCI performed (see procedure note) 10:47:47 See physician's report for complete and final results. 10:47:49 Report given to Pre/Post Procedure Room. 10:47:55 Patient transfered to Pre/Post Procedure Room with Stretcher. 10:47:57 Procedure ended. 10:47:57 Full Disclosure recording stopped 10:48:00 End room use (Document Last) 10:48:26 End room use (Document Last) 10:48:55 End room use (Document Last) Intervention Summary Intervention Notes Time ActionType Lesion and Equipment Action# Pressure Duration Attributes Used 10:37:54 Inflate 1st Diag EMERGE OTW 1 12 00:34 balloon 2.0 x 15 balloon ([id number]) 10:43:20 Place stent 1st Diag INTEGRITY RX 2 14 00:15 3.0 x 09 stent ([id number]) Device Usage Item Name Manufacture Quantity Catalog Number Hospital Part Current [facility] Lot# / Charge Number Stock Stock Serial# Code ACIST Acist 1 69485 165984 470821 925700 20 Syringe Medical (09494) Systems Inc Bag Decanter Microtek 1 2001S 093746 38781 084531 5 () Medical Inc. Medline Cath Medline 1 [id number] 080818 59791 610686 5 Pack ([id number]) ACIST Hand Acist 1 39473 522378 985644 479783 5 Control Medical (25711) Systems Inc ACIST Acist 1 39075 997846 325956 455961 5 Manifold Medical (96044) Systems Inc Tegaderm 4 x 3M 1 1626W 266950 353650 347859 5 4 (1626W) EMERALD Cardinal 1 502-455 953138 919962 512953 5 Guide Wire Health (502-455) SHEATH 6FR Terumo 1 ECW692 059354 651854 177196 40 [place] (ARJ845) WHISPER Streeter 1 [id number] 946162 163684 598853 5 300cm guide Vascular wire (4048614TV) GUIDE 6FR Cardinal 1 [id number] 766527 967374 921754 10 XBLAD 3.5 Health catheter (42600960) GUIDE 6FR Cardinal 1 [id number] 614975 860431 821436 3 XBLAD 4.0 Health catheter (60390788) EMERGE OTW [place] 1 [id number] 157441 680039 401112 5 [id number] 2.0 x 15 Scientific balloon ([id number]) INTEGRITY RX Medtronic 1 [id number] 662248 096738 206125 5 [id number] 3.0 x 09 stent ([id number]) EXOSEAL 6Fr Cardinal 1 EX600 276316 942080 517251 10 (EX600) Health Signature Audit [place] Stage Time Signature Unsigned Intra-Procedure 03/26/2020 Magali Peoples 10:48:26 AM RT(R) Intra-Procedure 03/26/2020 Christine Dugan 10:48:55 AM RN Intra-Procedure 03/26/2020 Nabeel Dockery 10:49:40 AM Abran ALMANZAR [facility] [address] [place] [address]
[~2020-03-26 07:30] MED LIST: ASCORBIC ACID500 MG PO; BAYER CHEWABLE81 MG PO; COZAAR50 MG PO; HYDROCHLOROTH12.5 M1 PO; IBUPROFEN800 MG PO; LEVOTHYROXINE50 MCG PO; LIPITOR10 MG PO; MULTI-DAY VITAM1 TAB PO; PLAVIX75 MG PO
[2020-03-26 08:03] VITALS: BP 181/79; Ht 185.4 cm; Wt 116.8 kg
[2020-03-26 08:22] LABS: BASOPHILS 0.3 % (0-2); EOSINOPHILS 8.8 % (0-7); HEMATOCRIT 39.9 % (42.0-54.0); IMMATURE GRANULOCYTES 0.3 % (0-5); LYMPHOCYTES 28.9 % (15-50); MCH 28.8 pg (26.0-34.0); MCHC 32.6 g/dL (31.0-37.0); MCV 88.3 fL (80.0-100.0); MEAN PLATELET VOLUME 10.2 fL (7.4-10.4); MONOCYTES 8.8 % (2-11); NEUTROPHILS 52.9 % (40-80); PLATELET COUNT 156 10x3/uL (130-400); RBC 4.52 10x6/uL (4.20-6.10); RDW 13.5 % (11.5-14.5); WBC 5.9 10x3/uL (4.8-10.8)
[2020-03-26 08:39] LABS: ANION GAP 10.1 mmol/L (8-16); CALCIUM 9.6 mg/dL (8.5-10.1); CARBON DIOXIDE 29.9 mmol/L (21.0-32.0); CREATININE - SERUM 1.3 mg/dL (0.6-1.3)
--- NOTE | 2020-03-26 11:00 | NUR ---
REC'D TO ROOM 4 VIA STRETCHER FROM INNER TUBE INSERTER. PT DROWSY. MONITORS ESTAB. SEE NEWSPAPER PHOTOJOURNALIST. ALARMS ON AND C/L IN REACH.
--- NOTE | 2020-03-26 11:15 | NUR ---
L GROIN SITE SOFT, NO S/S BLEEDING OR HEMATOMA. PULSES PALP. B/P 207/99, HR 67. PT DENIES PAIN, NO SIGN OF DISTRESS. DR. RANKIN.
--- NOTE | 2020-03-26 11:24 | NUR ---
DR. CERVANTES NOTIFIED OF B/P AND HR. NEW ORDER REC'D. - SEE EMAR
--- NOTE | 2020-03-26 11:45 | NUR ---
L GROIN SITE SOFT, NO S/S BLEEDING OR HEMATOMA. PT AWAKENS EASILY, DENIES PAIN OR NEEDS. B/P 182/99, WILL CONT MONITORING. ALARMS ON AND C/L IN REACH.
--- NOTE | 2020-03-26 12:00 | NUR ---
PT RESTING QUIETLY, B/P 178/85. L GROIN SITE SOFT, C/D/I, NO S/S BLEEDING OR HEMATOMA.
--- NOTE | 2020-03-26 12:30 | NUR ---
L GROIN SITE SOFT, C/D/I, NO S/S BLEEDING OR HEMATOMA. PT COOPERATIVE, DENIES NEEDS. ALARMS ON AND C/L IN REACH.
--- NOTE | 2020-03-26 12:43 | NUR ---
SPOKE WITH PTS , UPDATE GIVEN, D/C INSTRUCTIONS REVIEWED AND PLAN FOR PT D/C AT 1500.
--- NOTE | 2020-03-26 13:15 | NUR ---
L GROIN SITE C/D/I, NO S/S BLEEDING OR HEMATOMA. L LEG/FOOT WARM WITH PALP PULSES. VSS. C/L IN REACH.
--- NOTE | 2020-03-26 14:00 | NUR ---
L GROIN SITE SOFT, C/D/I. PT HOB ELEVATED. SANDWICH AND COFFEE PROVIDED PER REQUEST. C/L IN REACH.
--- NOTE | 2020-03-26 14:30 | NUR ---
PT ATE ALL OF SANDWICH, NO NAUSEA. VSS. L GROIN SITE C/D/I, NO S/S BLEEDING OR HEMATOMA.
--- NOTE | 2020-03-26 14:42 | NUR ---
L GROIN SOFT, C/D/I. PIV D/C'D INTACT - DSG APPLIED. PT ALLOWED UP TO GET DRESSED AND GO TO BR INDEPENDENTLY.
--- NOTE | 2020-03-26 14:50 | NUR ---
ALL D/C INSTRUCTIONS REVIEWED AND PT VERBALIZES UNDERSTANDING.
--- NOTE | 2020-03-26 15:00 | NUR ---
PT D/C'D TO PRIVATE VEHICLE WITH , PT HAS ALL PAPER WORK AND BELONGINGS.
--- NOTE | 2020-03-27 14:16 | OP ---
PATIENT NAME: ERICA RUIZ MEDICAL RECORD: [id number] :38 LOCATION:D.CAT ADMISSION DATE: SURGEON: CLAY CERVANTES MD DATE OF OPERATION: 03/26/2020 PROCEDURE: PTCA stent. DESCRIPTION OF PROCEDURE: After a 6-[place] Island[place] sheath placed in the left femoral artery, a XB 4 curved guiding catheter provided excellent guide catheter support followed by 300 cm Whisper wire was placed across the 90% plus stenosis diagonal this portion of vessel. Pre-deployment balloon was 2.0 [place] up to 14 atmospheres. Stent deployed was a 3.0 x 8 Integrity nondrug-eluting stent up to 12 atmospheres, shows excellent resolution of 90% plus stenosis, no significant residual. Nice step down distally. ABDIFATAH flow was 3 throughout the procedure. Heparin was used during the case. The patient was previously on Plavix. Sheath closed with ExoSeal device. TRANSINT:[id number] Voice Confirmation ID: [id number] DOCUMENT ID: [id number] CLAY CERVANTES MD at 1416 CC: [id number] DICTATION DATE: 03/26/20 1115 CELLARS SUPERVISOR: 03/26/20 1314 DEP CLI 03/26/20 [facility] [address] [place] [address]
== END 2020-03-26 15:00 | disposition home or self-care (01) ==
LOC: D.CATH 07:30
PROVIDERS: ATTEND Internal Medicine Interventional Cardiology
DX: I25.110 Atherosclerotic heart disease of native coronary artery with unstable angina pectoris (principal)